=== PATIENT | female | born 1945 | race Caucasian/White ===

== ENCOUNTER 2018-11-08 12:48 | Emergency (ER) | payer MEDICARE, OTHER ==
[~2018-11-08] VITALS: Wt 48.8 kg
[~2018-11-08 12:48] MED LIST: HYDR-762 PO; ONDA4TAB35 PO
--- NOTE | 2018-11-08 14:06 | ERD ---
ER Documentation Chief Complaint Chief Complaint ABD PAIN X 3 DAYS WITH NAUSEA/VOMITING HPI The patient is a 73-year-old female, presenting to the ER because of intermittent abdominal pain for 2 to 3 days with nausea but no vomiting. The abdominal pain localized at the right upper quadrant, denies similar symptoms previously, denies fever, chills, neck pain, chest pain, dysuria, diarrhea, constipation. She smokes, denies drinking Past medical history: None Past surgical history: Eye, right knee ROS All systems reviewed and are negative except as per history of present illness. Medications Home Meds Active Scripts Ibuprofen* (Motrin*) 600 Mg Tab, 600 MG PO Q6H PRN for PAIN AND OR ELEVATED TEMP, #20 TAB Prov:NIRAJ QUEZADA MD 11/08/18 Nitrofurantoin Monohyd Macrocr* (Macrobid*) 100 Mg Capsr, 100 MG PO BID for 14 Days, CAP Prov:NIRAJ QUEZADA MD 11/08/18 Reported Medications Alendronate Sodium* (Fosamax*) 70 Mg Tablet, 70 MG PO Q7D, #4 TAB 11/08/18 Diclofenac Sodium* (Voltaren* XR) 100 Mg Tab.sr.24h, 100 MG PO DAILY, TAB.SA 11/08/18 Mometasone-Formoterol (Dulera) 100-5 Mcg - 13 Gm Hfa.aer.ad, 2 PUFFS INHALATION BID, #1 INHALER 11/08/18 Cyclosporine (Restasis Multidose) 5.5 Ml Drops, 5.5 ML OP BID, BOTTLE 11/08/18 Simvastatin* (Zocor*) 10 Mg Tablet, 10 MG PO QHS, #30 TAB 11/08/18 Discontinued Scripts Ondansetron Hcl* (Zofran* ODT) 4 mg -ODT Tab.disper, 4 MG PO Q6 PRN for NAUSEA AND/OR VOMITING, #30 TAB Prov:YUSUF MICHEL MD 12/13/15 Hydrocodone Bit-Acetaminophen* (Sidney*) 10-325 Mg Tablet, 1 TAB PO Q6 PRN for PAIN, #7 TAB Prov:YUSUF MICHEL MD 12/13/15 Allergies Allergies: Coded Allergies: No Known Allergy (Unverified , 11/08/18) Physical Exam Vitals Vital Signs Date Temp Pulse Resp B/P (MAP) Pulse Ox O2 O2 Flow FiO2 Time Delivery Rate 11/08/18 98.6 79 17 141/63 98 Room Air 17:35 (89) 11/08/18 98.3 59 16 192/86 99 13:07 (121) Physical Exam Const: No acute distress. Head: Atraumatic. Eyes: Normal Conjunctiva. ENT: Normal External Ears, Nose and Mouth. Neck: Full range of motion. No meningismus. Resp: Clear to auscultation bilaterally. Cardio: Regular rate and rhythm. Abd: Soft, non distended, normal bowel sounds, mild and vague right upper quadrant discomfort, no right lower quadrant/epigastric/rigidity/rebound or CVA tenderness Skin: No petechiae or rashes. Back: No midline or flank tenderness. Ext: No cyanosis, or edema. Neur: Awake and alert. No focal deficit Psych: Normal Mood and Affect. Result Diagram: 11/08/18 1440 11/08/18 1440 Results 24 hrs Laboratory Tests Test 11/08/18 14:40 11/08/18 14:45 White Blood Count 6.3 10^3/ul Red Blood Count 5.18 10^6/ul Hemoglobin 14.5 g/dl Hematocrit 45.2 % Mean Corpuscular Volume 87.3 fl Mean Corpuscular Hemoglobin 28.0 pg Mean Corpuscular Hemoglobin Concent 32.1 g/dl Red Cell Distribution Width 13.7 % Platelet Count 190 10^3/UL Mean Platelet Volume 9.2 fl Immature Granulocytes % 0.200 % Neutrophils % 56.2 % Lymphocytes % 34.0 % Monocytes % 7.6 % Eosinophils % 1.4 % Basophils % 0.6 % Nucleated Red Blood Cells % 0.0 /100WBC Immature Granulocytes # 0.010 10^3/ul Neutrophils # 3.5 10^3/ul Lymphocytes # 2.1 10^3/ul Monocytes # 0.5 10^3/ul Eosinophils # 0.1 10^3/ul Basophils # 0.0 10^3/ul Nucleated Red Blood Cells # 0.0 10^3/ul Sodium Level 139 mmol/L Potassium Level 4.9 mmol/L Chloride Level 106 mmol/L Carbon Dioxide Level 25 mmol/L Anion Gap 8 Blood Urea Nitrogen 11 mg/dl Creatinine 0.48 mg/dl Est Glomerular Filtrat Rate mL/min mL/min Glucose Level 85 mg/dl Calcium Level 9.3 mg/dl Total Bilirubin 0.6 mg/dl Direct Bilirubin 0.00 mg/dl Indirect Bilirubin 0.6 mg/dl Aspartate Amino Transf (AST/SGOT) 41 IU/L Alanine Aminotransferase (ALT/SGPT) 9 IU/L Alkaline Phosphatase 62 IU/L Total Protein 8.1 g/dl Albumin 4.4 g/dl Globulin 3.70 g/dl Albumin/Globulin Ratio 1.18 Lipase 298 U/L Bedside Urine pH (LAB) 6.0 Bedside Urine Protein (LAB) Negative Bedside Urine Glucose (UA) Negative Bedside Urine Ketones (LAB) Negative Bedside Urine Blood Trace-lysed Bedside Urine Nitrite (LAB) Negative Bedside Urine Leukocyte Esterase (L 1+ Current Medications Medications Dose Sig/Diana Start Time Status Last (Trade) Ordered Route PRN Stop Time Admin Dose Reason Admin Ketorolac 15 mg ONCE STAT 11/08/18 DC 11/08/18 Tromethamine IV 17:00 17:24 (Toradol) 11/08/18 17:01 Procedures/[place] [id number] Radiology Main Line: [phone] DIAGNOSTIC IMAGING REPORT Patient: AMELIA RITCHIE : 1945 Age: 73 Sex: F MR #: [id number] DOS: 11/08/18 1429 Ordering MD: NIRAJ QUEZADA MD Location: E/R Room/Bed: PROCEDURE: US Abdomen. CLINICAL INDICATION: abdominal pain TECHNIQUE: Multiple real-time images were acquired of the patient's right upper quadrant abdomen and retroperitoneum utilizing a high resolution tra nsducer. COMPARISON: 12/13/15 FINDINGS: The liver demonstrates normal echogenicity. The liver is normal in size.. The liver measures 12 cm in length. The portal vein is patent with normal direction of flow. No intrahepatic biliary dilatation is seen. There is a peripherally calcified structure in the posterior right lobe of the liver measuring 4.3 x 3.7 cm. No gallstones are identified within the gallbladder. There is no pericholecystic fluid or gallbladder wall thickening. The common bile duct measures 5 mm in maximal dimension. The visualized portions of the pancreas are unremarkable. The tail of the pancreas is not seen. The pancreatic duct measures 2 mm in diameter. No free fluid is identified. The right kidney is normal in size, and demonstrate normal echogenicity and cortical thickness. The right kidney measures 11.2 cm in long dimension. There is no evidence of hydronephrosis. There are no kidney stones. There is a 2.2 cm simple cyst in the right kidney. RPTAT: AA IMPRESSION: No evidence of gallstones. Peripherally calcified lesion in the right lobe of the liver measuring 4.3 cm. Simple cyst in the right kidney. .Warren Purdy MD, MD Date Time Electronically viewed and signed by .Warren Purdy MD, MD on 11/08/2018 16:38 .S/ CC: NIRAJ QUEZADA MD [phone] MEDICAL MAKING DECISION: The patient is a 72-year-old female, presenting with acute abdominal pain of unclear etiology, acute UTI, hepatic lesion, right renal cyst. She was treated with Toradol 15 mg IV for pain, is stable for outpatient follow-up The differential diagnoses considered include but are not limited to cholelithiasis, cholecystitis, choledocholithiasis, cholangitis, pancreatitis, hepatitis, gastritis, peptic ulcer disease, gastric ulcer, appendicitis, cystitis, diverticulitis, partial small bowel obstruction. Departure Diagnosis: Primary Impression: Abdominal pain Additional Impressions: Hepatic lesion Renal cyst, right Condition: Good Comments She was discharged with Motrin and Macrobid The patient's blood pressure was elevated (>120/80) but appears stable without evidence of hypertension emergency or urgency. The patient was counseled about the risks of hypertension and urged to pursue outpatient monitoring and therapy within a week with their primary care physician. I discussed the findings with the patient. I advised the patient to follow-up with the primary physician in about 2-3 days for referral to gastroenterology for further evaluation of the hepatic lesion, sooner if needed and return if any concern. Disclaimer: Inadvertent spelling and grammatical errors are likely due to EHR/dictation software use and do not reflect on the overall quality of patient care. Also, please note that the electronic time recorded on this note does not necessarily reflect the actual time of the patient encounter. NIRAJ QEUZADA MD November 08, 2018 14:06
[2018-11-08] MEDS ORDERED: SIMV10TA PO (15:42)
[2018-11-08] MEDS ORDERED: CYCL5.5D OP (15:43)
[2018-11-08] MEDS ORDERED: DICL100T PO (15:50)
[2018-11-08] MEDS ORDERED: MOME13HF2 INHALATION (15:50)
[2018-11-08] MEDS ORDERED: ALEN70TA5 PO (15:50)
[2018-11-08] MEDS ORDERED: NITR-58 PO (16:57)
[2018-11-08] MEDS ORDERED: IBUP-1542 PO (16:58)
[2018-11-08] MEDS ORDERED: KETOROLAC 15 MG INJ IV STA (17:00)
[2018-11-08 17:35] VITALS: BP 141/63; PULSE 79; RESP 17
== END 2018-11-08 17:16 | disposition home or self-care (01) ==
LOC: E/R 12:48
DX: K76.9 Liver disease, unspecified (principal); N28.1 Cyst of kidney, acquired
CPT/HCPCS: 36415; 76705; 80053; 81003; 83690; 85025; 96374; 99285; J1885